=== PATIENT | female | born 2000 | race Caucasian/White ===

== ENCOUNTER 2022-08-10 21:24 | Emergency (ER) | payer MEDICAID ==
[~2022-08-10] VITALS: Ht 167 cm; Wt 84.3 kg
[2022-08-10 21:34] VITALS: BP 129/72
[2022-08-10] MEDS ORDERED: CEPH500T PO (21:59)
[2022-08-10] MEDS ORDERED: CEPHALEXIN 250 MG (KEFLEX) CAP PO STA (21:59)
--- NOTE | 2022-08-10 21:59 | ED General ---
General Chief Complaint: Skin/Wound Problems Stated Complaint: BUG BITE Nursing Triage Note: pt woke up this morning with what she thinks is a spider bite under her arm. throughout the day, pt became nauseous + vomited and felt feverish/chilled. pt is febrile and tachy at triage. pt took tylenol around 1400. pt 8weeks . Source of Information: Patient Exam Limitations: No Limitations History of Present Illness Date Seen by Provider: August 10, 2022 Time Seen by Provider: 21:28 Initial Comments 22-year-old female with no pertinent past medical history that is roughly 8 weeks coming in due to redness and pain in her right upper extremity. She noticed it this morning, is unsure if she had a bug bite. It is mildly painful, has not taken anything for it, no fever. Otherwise denying any other acute complaints. She states her has been healthy up until now. Allergies and Home Medications Allergies Coded Allergies: No Known Drug Allergies (Unverified , 08/10/22) Patient Home Medication List Home Medication List Reviewed: Yes Review of Systems Review of Systems Constitutional: No fever EENTM: no symptoms reported Respiratory: no symptoms reported Cardiovascular: no symptoms reported Gastrointestinal: no symptoms reported Genitourinary: no symptoms reported Expected Date of Delivery: Mar 12, 2023 Skin: see HPI Past Nonvdpa-Aeiwor-Mwyrrf Hx Patient Social History Tobacco Use?: Yes Tobacco type used: Cigarettes Smoking Status: Current Everyday Smoker Use of E-Cig and/or Vaping dev: No Substance use?: No Alcohol Use?: No Pt feels they are or have been: No Past Medical History Expected Date of Delivery: Mar 12, 2023 Last Menstrual Period: May 25, 2022 Physical Exam Vital Signs Vital Signs - First Documented 08/10/22 21:34 Temp 38.1 Pulse 120 Resp 18 B/P (MAP) 129/72 (91) Capillary Refill : Less Than 3 Seconds Height, Weight, BMI Height: '" Weight: lbs. oz. kg; 30.00 BMI Method: General Appearance: No Apparent Distress, WD/WN Eyes: Bilateral Eye Normal Inspection HEENT: PERRL/EOMI, Normal ENT Inspection, Pharynx Normal Neck: Full Range of Motion, Normal Inspection, Non Tender, Supple Respiratory: Chest Non Tender, Lungs Clear, Normal Breath Sounds, No Accessory Muscle Use, No Respiratory Distress Cardiovascular: Regular Rate, Rhythm, No Edema, Normal Peripheral Pulses Gastrointestinal: Normal Bowel Sounds, Non Tender, Soft; No Distended, No Guarding Back: Normal Inspection Extremity: Other (O potential bite wound to the right upper extremity just next to her axilla, there is an erythematous border going down her arm that stops at the elbow, it is a blanching rash, Nikolsky negative) Neurologic/Psychiatric: Alert, No Motor/Sensory Deficits, Normal Mood/Affect Skin: Rash Progress/Results/Core Measures Suspected Sepsis SIRS Temperature: Pulse: 120 Respiratory Rate: 18 Blood Pressure 129 /72 Mean: 91 Results/Orders Vital Signs/I&O 08/10/22 21:34 Temp 38.1 Pulse 120 Resp 18 B/P (MAP) 129/72 (91) Capillary Refill : Less Than 3 Seconds Blood Pressure Mean: 91 Progress Note : Progress Note Well-appearing 22-year-old female coming in due to concerns initially for a bug bite. ABCs were intact and vitals were stable on presentation. Exam consistent with potentially a bug bite as well as erysipelas. She is . We will give her first dose of Keflex here followed by a prescription. She is well- appearing and does not need labs at this time. She was then discharged home in stable condition with strict return precautions Departure Impression Primary Impression: Erysipelas Disposition: 01 HOME, SELF-CARE Condition: Stable Departure-Patient Inst. Decision time for Depature: 22:05 Referrals: PRAVIN RIGGS APRN (PCP) Primary Care Physician Patient Instructions: Cellulitis and erysipelas (skin infections) Add. Discharge Instructions: This looks like a skin infection. You will be on antibiotics for the next 10 days. This is a safe antibiotic during . I would expect the antibiotic to start working within the next 48 hours. At that point, it certainly should not be spreading further. Take Tylenol as needed for pain. If things are worsening, please follow-up with your regular doctor in the next 3 days. Scripts Cephalexin (Cephalexin) 500 Mg Tablet 500 MG PO QID for 10 Days, #40 TAB Prov: JT ESPINOSA MD 08/10/22 Work/School Note: Work Release Form Date Seen in the Emergency Department: August 10, 2022 Return to Work: Aug 12, 2022 Restrictions: No Restrictions JT ESPINOSA MD August 10, 2022 21:59
== END 2022-08-10 22:07 | disposition home or self-care (01) ==
LOC: ER 21:27
DX: O99.711 Diseases of the skin and subcutaneous tissue complicating pregnancy, first trimester (principal); A46 Erysipelas; O99.331 Smoking (tobacco) complicating pregnancy, first trimester; F17.210 Nicotine dependence, cigarettes, uncomplicated; Z3A.08 8 weeks gestation of pregnancy
CPT/HCPCS: 99283